=== PATIENT | male | born 1970 | race Caucasian/White ===

== ENCOUNTER 2018-11-05 08:39 | Day surgery (SDC) | payer MEDICAID ==
[2018-11-05] MEDS ORDERED: LIDOCAINE 2% MDV (20MG/ML) 20ML VIAL IV ONE (08:40)
[2018-11-05] MEDS ORDERED: PROPOFOL 10 MG/ML VIAL IV ONE (08:40)
--- NOTE | 2018-11-06 13:00 | Operative Note ---
OPERATION: COLONOSCOPY with cold snare polypectomy, cautery, epi injection, and hemoclip placement. PREOPERATIVE DIAGNOSIS: Colon cancer screening average risk. POSTOPERATIVE DIAGNOSES: 1. Left-sided diverticulosis. 2. Rectal polyp. PREPARATION QUALITY: Good to excellent. ESTIMATED BLOOD LOSS: Less than 50 mL. SPECIMENS: Rectal polyp. PROCEDURE: After informed consent was obtained from the patient, he was placed in the left lateral decubitus position in the endoscopy suite, sedated and monitored by the department of anesthesia. Digital rectal exam revealed no palpable mass. A well-lubricated [id number] colonoscope was inserted into the rectum and advanced to the cecum. Preparation quality was good to excellent. The cecum, cecal bulb, ileocecal valve, appendiceal orifice, ascending colon, transverse colon, descending colon, and sigmoid colon were carefully inspected. No polyps, mass lesions, or inflammation was seen. There were a few scattered diverticula in the sigmoid colon and descending colon. In the rectum there was a 6 mm sessile polyp which was removed with a cold polypectomy snare. There was bleeding after this, less than 50 mL estimated of bleeding. The area was subsequently cauterized as well as injected with 2 mL of 1:10,000 epinephrine. There was blanching at the site. There was a scant amount of ooze. Three hemoclips were applied with no bleeding noted. The area was rinsed and observed. No persistent bleeding was observed. J-turn views of the rectum previously performed revealed no other abnormalities. RECOMMENDATIONS: The patient should follow a soft, low-fiber diet and avoid aspirin and nonsteroidal products for the next 2 weeks. He will require repeat exam in 3-5 years pending tissue histology. As always, thank you for allowing me to participate in the healthcare of your patients. HARRIS
== END 2018-11-05 10:30 | disposition home or self-care (01) ==
LOC: HOP 08:39
PROVIDERS: ATTEND Internal Medicine Gastroenterology
DX: Z12.11 Encounter for screening for malignant neoplasm of colon (principal); D12.8 Benign neoplasm of rectum; K57.30 Diverticulosis of large intestine without perforation or abscess without bleeding